=== PATIENT | male | born 1975 | race Caucasian/White ===

== ENCOUNTER → 2016-09-27 | Day surgery (SDC) | payer OTHER ==
[~2016-09-27] VITALS: Ht 188 cm; Wt 121.0 kg
[~2016-09-27] MED LIST: *RESP: ALBUTEROL 2.5 MG/3 ML NEB (PRN) PERIprocedural Use ONLY NEB ONE; ABIL2TAB2 PO; ACETAMINOPHEN 1000 MG/100 ML VIAL IV ONE; ACETAMINOPHEN 1000 MG/100 ML VIAL IV SCH; BUPIVACAINE/EPINEPHRINE 0.5% PF 30 ML VIAL ONE; DEXAMETHASONE SOD PHOS 4 MG/ML VIAL ONE; FAMOTIDINE 20 MG/2 ML VIAL ONE; INSULIN HUMAN REGULAR 1,000 UNITS/10 ML VIAL SQ PRN; KETOROLAC TROMETHAMINE 60 MG/2 ML (IM) VIAL IM ONE; LACTATED RINGER'S 1000 ML IV SCH; LOVA20TA PO; METOPROLOL TARTRATE 25 MG TAB PO PRN; MIDAZOLAM HCL 2 MG/2 ML VIAL ONE; NEOSTIGMINE 3 MG/3 ML SYR IV ONE; OMEP20TA PO; ONDANSETRON HCL 4 MG/2 ML VIAL IV PUSH ONE; PERC5TAB12 PO; PROPOFOL 200 MG/20 ML AMP IV ONE; SODIUM CHLORID 0.9% 500 ML IV SCH; ceFAZolin 2 GM PREMIX 50 ML IV SCH; ceFAZolin 2 GM PREMIX 50 ML ONE; ePHEDrine/NS 25 MG/5 ML SYR IV ONE; fentaNYL CITRATE 250 MCG/5 ML AMP ONE
[2016-09-27 10:17] VITALS: BP 130/81; PULSE 76; RESP 18; TEMP 97.8; O2SAT 96
--- NOTE | 2016-09-27 14:29 | PD.OP ---
cc: Eladio Armenta MD Operative Report Date of Surgery: Sep 27, 2016 Preoperative Diagnosis: (1) Epigastric hernia Postoperative Diagnosis: (1) Epigastric hernia Procedure: Laparoscopic repair of epigastric hernia with mesh Anesthesia: TOMA Surgeon: Eladio Armenta Flame Hardener(s): Tina ADDISON Operation and Findings: EBL: 10 cc Operative findings: The patient had a 1 x 1 cm epigastric hernia. There was attenuation weakening of the surrounding fascia. Procedure in detail: The patient was taken to the operating room and placed supine position. Gen. endotracheal anesthesia was induced. The abdomen was prepped and draped in usual sterile fashion and a surgical timeout was performed to verify correct patient procedure and site. Appropriate perioperative antibiotics were administered. In the left lower abdomen 5 mm incision was made after infiltration with local anesthetic and a 5 mm port placed using the direct Optiview technique. The abdomen was insufflated to 15 mmHg which the patient tolerated well. Another 5 mm port was placed in the suprapubic region and one in the left upper quadrant. Attention was turned to the upper abdomen. There was a large amount of fatty tissue along the peritoneum. The falciform ligament was taken down using electrocautery and the fatty tissue was cleared using electrocautery. At this point there was identified a small fascial defect about 1 x 1 cm with a large amount of incarcerated preperitoneal fat. The fat was carefully reduced. There is also noted to be 2 other small fascial defects to the right of the primary one which may have occurred during dissection. In addition the surrounding fascia and the epigastrium was quite attenuated and weak appearing. Each of the fascial defects was closed using the [place] suture passer and 0 Vicryl suture. Due to there being more than one defect as well as attenuated surrounding fascia, [place] DualMesh 10 x 15 cm was chosen. This was cut down to 12 x 10 cm and a gore suture placed at each border. This was brought into the abdomen through one of the 5 mm incision sites. The fascia was oriented properly and the [place] sutures brought out through separate stab incisions with about 4 cm of mesh overlap on each side of the fascial defects. The pro-tack tacker was used to secure the edges of the mesh. There was wide coverage of the entire fascial defects and weakened fascial area. At this point the abdomen was allowed to desufflate and trochars were removed. The skin was closed with subcuticular 4- 0 Monocryl suture as well as Dermabond. An abdominal binder was placed. The patient tolerated the procedure well was extubated and taken to PACU in stable condition. Eladio Armenta MD Sep 27, 2016 14:29
[2016-09-27 16:05] VITALS: BP 150/76; PULSE 68; RESP 18; TEMP 97.3; O2SAT 96
== END | disposition home or self-care (01) ==
LOC: HSDC 09:35
PROVIDERS: ATTEND Surgery
DX: K43.9 Ventral hernia without obstruction or gangrene (principal); K25.9 Gastric ulcer, unspecified as acute or chronic, without hemorrhage or perforation
CPT/HCPCS: 00750; 49653; 94664; C1781; J0131; J0690; J1100; J1885; J2250; J2405; J2710; J3010; J7120; J7613